=== PATIENT | male | born 1980 | race Caucasian/White ===

== ENCOUNTER 2018-12-26 11:38 | Emergency (ER) | payer OTHER ==
[~2018-12-26] VITALS: Ht 182.9 cm; Wt 86.2 kg
[2018-12-26] MEDS ORDERED: FLUOXETINE HCL20 MG PO (12:38)
[2018-12-26] MEDS ORDERED: HYDROXYZINE HCL25 MG PO ×2 (12:38→13:39)
[2018-12-26] MEDS ORDERED: ATIVAN1 MG PO (13:39)
== END 2018-12-26 13:45 | disposition home or self-care (01) ==
LOC: ED 11:38
DX: F41.9 Anxiety disorder, unspecified (principal); K29.70 Gastritis, unspecified, without bleeding; K21.9 Gastro-esophageal reflux disease without esophagitis
CPT/HCPCS: 99283; Q0177

== ENCOUNTER 2018-12-30 08:02 | Emergency (ER) | payer OTHER ==
[~2018-12-30] VITALS: Ht 182.9 cm; Wt 87.9 kg
[~2018-12-30 08:02] MED LIST: ATIVAN1 MG PO; FLUOXETINE HCL20 MG PO; HYDROXYZINE HCL25 MG PO
--- OUTSIDE RECORDS SUMMARY | 2018-12-30 08:06 | XMS ---
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 Helen has no Care Guidelines for this patient. [facility]: Visits indicate total known visits. ED/C VISIT TRACKING (12 MO.) 12/30/2018 08:[address] [facility] [place] TYPE: Emergency COMPLAINT: - INSOMNIA, ANXIETY 12/26/2018 11:[address] [facility] [place] TYPE: Emergency COMPLAINT: - PANIC ATTACK DIAGNOSES: - Gastro-esophageal reflux disease without esophagitis - Gastritis, unspecified, without bleeding - Anxiety disorder, unspecified INPATIENT VISIT TRACKING (12 MO.) No inpatient visits to display in this time frame [id number]
[2018-12-30] MEDS ORDERED: HYDROXYZINE HCL25 MG PO (10:06)
[2018-12-31] MEDS ORDERED: CLONAZEPAM1 MG PO (04:07)
== END 2018-12-30 10:14 | disposition home or self-care (01) ==
LOC: ED 08:02
DX: F41.9 Anxiety disorder, unspecified (principal); K29.70 Gastritis, unspecified, without bleeding; Z79.899 Other long term (current) drug therapy
CPT/HCPCS: 80053; 83690; 85025; 99283

== ENCOUNTER 2018-12-31 02:41 | Emergency (ER) | payer OTHER ==
[~2018-12-31] VITALS: Ht 182.9 cm; Wt 87.6 kg
--- OUTSIDE RECORDS SUMMARY | 2018-12-31 02:42 | XMS ---
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 Care History Medical/Surgical 12/30/2018 [facility] - PATIENT HAS AN APT TO ESTABLISH CARE WITH DR PRATT ON 02/03/19. - Patient is currently established with [facility]. If patient is seen in the ED during business hours. Please contact [facility] at [facility]. Care Recommendation: This patient has had 5 or more Emergency Department visits in the last 12 months.\T\nbsp; Patient requires education on the scope and purpose of the ED as an acute care provider not a Primary Care Provider and should not be utilized for chronic conditions.\T\nbsp; These are guidelines and the provider should exercise clinical judgment when providing care. E.D. VISIT COUNT (12 MO.) 3 [facility] TOTAL 3 NOTE: Visits indicate total known visits. ED/UCC VISIT TRACKING (12 MO.) 12/31/2018 02:41 [facility] [place] TYPE: Emergency COMPLAINT: - VOMITING 12/30/2018 08:03 [facility] [place] TYPE: Emergency COMPLAINT: - INSOMNIA, ANXIETY 12/26/2018 11:[address] [facility] [place] TYPE: Emergency COMPLAINT: - PANIC ATTACK DIAGNOSES: - Gastro-esophageal reflux disease without esophagitis - Gastritis, unspecified, without bleeding - Anxiety disorder, unspecified INPATIENT VISIT TRACKING (12 MO.) No inpatient visits to display in this time frame [id number]
[2018-12-31] MEDS ORDERED: CLONAZEPAM1 MG PO (04:07)
== END 2018-12-31 04:35 | disposition home or self-care (01) ==
LOC: ED 02:41
DX: F41.9 Anxiety disorder, unspecified (principal); Z79.899 Other long term (current) drug therapy
CPT/HCPCS: 80053; 81001; 85025; 96374; 99284-25; J1200; J7030